=== PATIENT | female | born 1980 | race Hispanic/Latino ===

== ENCOUNTER 2020-10-06 13:52 | Emergency (ER) | payer BC, MEDICAID, SELFPAY ==
[2020-10-06 14:26] LABS: Bilirubin Neg (Negative); Blood, Urine 250 (Negative); Clarity Cloudy (Clear); Glucose, Urine (Dipstick) Normal (Negative); Ketone, Urine Negative (Negative); Leukocyte 100 (Negative); Nitrite Negative (Negative); Protein, Urine (Dipstick) 15 mg/dl (Neg-Trace); Urobilinogen Normal mg/dL (Less than 2)
[2020-10-06 14:37] LABS: Bacteria/HPF Rare-Few HPF (None Seen); RBC/HPF Greater than 50 HPF (0-3); WBC/HPF 0-3 HPF (0-3)
[2020-10-06 14:38] LABS: Transitional Epithelial 0-3 HPF (None Seen)
[2020-10-06 14:45] LABS: #Eosinphils 0.1 10x3/uL (0.0-0.5); #Monocytes 0.8 10x3/uL (0.0-1.1); #Neutrophils 7.9 10x3/uL (1.5-8.4); %Basophils 0.2 % (0.0-2.0); %Eosinophils 1.3 % (0.0-6.0); %Lymphocytes 20.4 % (18.0-47.0); %Monocytes 6.8 % (0.0-10.0); %Neutrophils 70.9 % (40.0-75.0); Hemoglobin 13.3 g/dL (12.0-15.5); Mean Corpuscular HGB CONC 34.2 g/dL (32.0-36.0); Mean Corpuscular Hemoglobin 30.5 pg (27.0-33.0); Mean Corpuscular Volume 89.2 fl (81.6-98.3); Platelet Count 283 10x3/uL (150-450); RBC Distribution Width 12.8 % (11.5-14.5); Red Blood Cell (RBC) Count 4.36 10x6/uL (3.90-5.03); White Blood Cell (WBC) Count 11.1 10x3/uL (3.5-10.5)
== END 2020-10-06 16:55 | disposition home or self-care (01) ==
LOC: CSHERS 13:52
DX: O20.9 Hemorrhage in early pregnancy, unspecified (principal); Z3A.01 Less than 8 weeks gestation of pregnancy
CPT/HCPCS: 76856; 81003; 81015; 84702; 85025; 86900; 86901

== ENCOUNTER 2020-10-15 03:56 | Emergency (ER) | payer MEDICAID, SELFPAY ==
[2020-10-15 04:51] LABS: Bilirubin Neg (Negative); Blood, Urine 250 (Negative); Clarity Cloudy (Clear); Glucose, Urine (Dipstick) Normal (Negative); Ketone, Urine Negative (Negative); Leukocyte 25 (Negative); Nitrite Negative (Negative); Protein, Urine (Dipstick) 30 mg/dl (Neg-Trace); Urobilinogen Normal mg/dL (Less than 2)
[2020-10-15] MEDS ORDERED: Morphine 4 MG/ML VIAL ONE (04:51)
[2020-10-15] MEDS ORDERED: Ondansetron PF 4 MG/2 ML Vial ONE ×2 (04:51→08:18)
[2020-10-15 04:55] LABS: #Eosinphils 0.2 10x3/uL (0.0-0.5); #Monocytes 0.7 10x3/uL (0.0-1.1); #Neutrophils 7.2 10x3/uL (1.5-8.4); %Basophils 0.2 % (0.0-2.0); %Eosinophils 1.6 % (0.0-6.0); %Lymphocytes 27.9 % (18.0-47.0); %Monocytes 5.8 % (0.0-10.0); %Neutrophils 64.1 % (40.0-75.0); Hemoglobin 14.3 g/dL (12.0-15.5); Mean Corpuscular Hemoglobin 29.8 pg (27.0-33.0); Mean Corpuscular Volume 90.2 fl (81.6-98.3); Mean Platelet Volume 10.3 fl (7.4-10.4); Platelet Count 308 10x3/uL (150-450); White Blood Cell (WBC) Count 11.2 10x3/uL (3.5-10.5)
[2020-10-15 05:00] LABS: Bacteria/HPF 1+ HPF (None Seen); Mucous/LPF None Seen LPF (<2+); RBC/HPF Greater than 50 HPF (0-3); Squamous Epithelial 0-3 HPF (0-3)
[2020-10-15 05:04] LABS: ALT (SGPT) 26 U/L (8-55); AST (SGOT) 19 U/L (5-34); Albumin 4.4 g/dL (3.5-5.0); Alkaline Phosphatase 76 U/L (40-110); Anion Gap 17 mmol/L (10-20); BUN (Urea Nitrogen) 13 mg/dL (7.0-18.7); Bilirubin, Total 0.5 mg/dL (0.2-1.2); Calc. Creatinine Clearance 0 mL/min (70-130); Calcium 9.5 mg/dL (7.8-10.44); Carbon Dioxide 23 mmol/L (22-29); Chloride 103 mmol/L (98-107); Globulin 3.1 g/dL (2.4-3.5); Glucose 100 mg/dL (70-105); Potassium 3.7 mmol/L (3.5-5.1); Protein, Total 7.5 g/dL (6.0-8.3); Sodium 139 mmol/L (136-145)
[2020-10-15] MEDS ORDERED: Dexamethasone 4 mg/ml Vial ONE (08:18)
[2020-10-15] MEDS ORDERED: PROPOFOL 20 ML ONE (08:18)
[2020-10-15] MEDS ORDERED: Lidocaine 1% PF 5 ML VIAL ONE (08:18)
[2020-10-15] MEDS ORDERED: Fentanyl 100 MCG/2 ML VIAL ONE (08:18)
[2020-10-15 09:59] LABS: SARS-CoV-2 NAA Rapid Test Not Detected (NotDetected)
== END 2020-10-15 09:03 | disposition admitted as inpatient to this hospital (09) ==
LOC: CSHERS 03:56
DX: O99.891 Other specified diseases and conditions complicating pregnancy (principal); R10.9 Unspecified abdominal pain; Z20.822 Contact with and (suspected) exposure to COVID-19
CPT/HCPCS: 80053; 81003; 81015; 84702; 85025; 86850; 86900; 86901; 88305; 88331; 88332; 96374; 96375; J1100; J2270; J2405; J2704; J3010; J9250; U0002

== ENCOUNTER 2021-02-09 13:41 | Emergency (ER) | payer OTHER, MEDICAID | END 2021-02-09 20:10 | disposition home or self-care (01) | LOC: CSHERS 13:41 | DX: R20.2 Paresthesia of skin (principal) | CPT/HCPCS: 99283 ==